=== PATIENT | male | born 1980 | race Caucasian/White ===

== ENCOUNTER 2018-07-12 15:45 | Emergency (ER) | payer SELFPAY ==
[2018-07-12] MEDS ORDERED: 50% Dextrose in Water 50 ML SDV ONE (15:48)
[2018-07-12] MEDS ORDERED: Dextrose 5%-0.9% NaCl 1,000 ML ONE (15:52)
--- NOTE | 2018-07-12 16:06 | EDM.PDOC ---
ED HPI GENERAL MEDICAL PROBLEM - General Chief Complaint: Diabetic Complaint Stated Complaint: WORK INJURY Time Seen by Provider: 07/12/18 15:47 - History of Present Illness INITIAL COMMENTS - FREE TEXT/NARRATIVE: 37-year-old male brought in by a coworker with decreased level of consciousness. Patient is a type I diabetic who became less responsive during the course of the last couple of hours. It is unclear if he ate lunch. Apparently he's been uses insulin as directed. Patient states he has plenty of insulin he cannot recall exactly what happens this information was found down after the patient's condition medically improved after getting glucose. The patient is a type I diabetic for most all his life. - Related Data Allergies Allergy/AdvReac Type Severity Reaction Status Date / Time No Known Allergies Allergy Verified 07/12/18 16:10 Home Meds: Home Meds Insulin Aspart [NovoLOG] 0 unit SQ WITHMEALSANDBED 07/12/18 [History] Insulin Glarg,Human.Rec.Analog [Lantus] 50 unit SQ BEDTIME 07/12/18 [History] Insulin Glarg,Human.Rec.Analog [Lantus] 80 unit SUBCUT DAILY 07/12/18 [History] ED ROS GENERAL - Review of Systems Review Of Systems: Unable To Obtain ED EXAM GENERAL NO PERIP PULSE - Physical Exam Exam: See Below Exam Limited By: Other (Patient is awake but will not answer questions initially Accu-Chek was done which reveals a result less than 30) Head: Atraumatic, Normocephalic Neck: Normal Inspection, Supple, Non-Tender. No: Lymphadenopathy (L), Lymphadenopathy (R) Respiratory/Chest: No Respiratory Distress, Lungs Clear, Normal Breath Sounds Cardiovascular: Regular Rate, Rhythm, No Edema, No Murmur GI/Abdominal: Normal Bowel Sounds, Soft, Non-Tender Course - Vital Signs Last Recorded V/S: Last Vital Signs Temp 37.2 C 07/12/18 16:07 Pulse 78 07/12/18 16:07 Resp 16 07/12/18 16:07 BP 160/99 H 07/12/18 16:07 Pulse Ox 99 07/12/18 16:07 - Orders/Labs/Meds Labs: Laboratory Tests 07/12/18 07/12/18 07/12/18 Range/Units 15:50 15:50 16:09 WBC 11.13 H (4.23-9.07) K/mm3 RBC 5.33 (4.63-6.08) M/mm3 Hgb 16.1 (13.7-17.5) gm/L Hct 46.6 (40.1-51.0) % MCV 87.4 (79.0-92.2) fl MCH 30.2 (25.7-32.2) pg MCHC 34.5 (32.2-35.5) g/dl RDW Std Deviation 42.3 (35.1-43.9) fL Plt Count 249 (163-337) K/mm3 MPV 9.9 (9.4-12.3) fl Neutrophils % (Manual) 73 H (40-60) % Band Neutrophils % 3 (0-10) % Lymphocytes % (Manual) 15 L (20-40) % Atypical Lymphs % 0 % Monocytes % (Manual) 8 (2-10) % Eosinophils % (Manual) 1 (0.8-7.0) % Basophils % (Manual) 0 L (0.2-1.2) Hypersegmented Neuts Few Toxic Granulation 1+ slight Platelet Estimate Adequate Plt Morphology Comment Normal RBC Morph Comment Normal Sodium 142 (136-145) mEq/L Potassium 3.8 (3.5-5.1) mEq/L Chloride 104 (98-107) mEq/L Carbon Dioxide 24 (21-32) mEq/L Anion Gap 17.8 H (5-15) BUN 16 (7-18) mg/dL Creatinine 1.0 (0.7-1.3) mg/dL Est Cr Clr Drug Dosing 113.17 mL/min Estimated GFR (MDRD) > 60 (>60) mL/min BUN/Creatinine Ratio 16.0 (14-18) Glucose 43 L (74-106) mg/dL POC Glucose 163 H (70-105) mg/dL Calcium 9.8 (8.5-10.1) mg/dL Total Bilirubin 0.4 (0.2-1.0) mg/dL AST 38 H (15-37) U/L ALT 64 H (16-63) U/L Alkaline Phosphatase 73 (46-116) U/L Total Protein 8.0 (6.4-8.2) g/dl Albumin 4.7 (3.4-5.0) g/dl Globulin 3.3 gm/dL Albumin/Globulin Ratio 1.4 (1-2) Meds: Medications Discontinued Medications Generic Name Dose Route Start Last Admin Trade Name Malia PRN Reason Stop Dose Admin Dextrose/Water 50 ml 07/12/18 16:22 07/12/18 15:51 Dextrose 50% In Water IVPUSH 07/12/18 16:23 50 ml STAT ONE Administration Dextrose/Sodium Chloride Confirm 07/12/18 15:52 07/12/18 16:11 Dextrose 5%-Normal Saline Administered 07/12/18 15:53 Not Given Dose 1,000 mls @ as directed .ROUTE .STK-MED ONE Dextrose/Sodium Chloride 1,000 mls @ 150 mls/hr 07/12/18 16:15 07/12/18 16:00 Dextrose 5%-Normal Saline IV 150 mls/hr ASDIRECTED VINCENZO Administration - Re-Assessments/Exams Free Text/Narrative Re-Assessment/Exam: 07/12/18 20:21 The patient dramatically improved and became normally conversive. Repeat bedside blood sugar was checked and found to be 163. After the patient improved he chose to leave the emergency room and signed out AMA. I discussed the risks of this with him and he still wanted to go Departure - Departure Time of Disposition: 16:10 Disposition: Against Medical Advice 07 Clinical Impression: Hypoglycemia - Discharge Information Referrals: PCP,None [Primary Care Provider] - Forms: ED Department Discharge
[2018-07-12] MEDS ORDERED: Dextrose 5%-0.9% NaCl 1,000 ML IV SCH (16:15)
[2018-07-12] MEDS ORDERED: 50% Dextrose in Water 50 ML Syringe IVPUSH ONE (16:22)
== END 2018-07-12 16:33 | disposition left against medical advice (07) ==
LOC: JD.ED 15:45
DX: E10.649 Type 1 diabetes mellitus with hypoglycemia without coma (principal)
CPT/HCPCS: 36415; 80053; 82962; 85007; 85027; 96374; 99284; J7042; J7060; 99283

== ENCOUNTER 2019-04-22 14:04 | Emergency (ER) | payer BC, OTHER ==
--- NOTE | 2019-04-22 14:47 | EDM.PDOC ---
ED HPI GENERAL MEDICAL PROBLEM - General Chief Complaint: Back Pain or Injury Stated Complaint: BACK INJURY/PAIN Time Seen by Provider: 04/22/19 14:28 Source of Information: Reports: Patient History Limitations: Reports: No Limitations - History of Present Illness INITIAL COMMENTS - FREE TEXT/NARRATIVE: Patient is a 38-year-old male who presents with complaints of upper back pain and slight numbness in his left arm for the last approximate 9 days. Patient states about 9 days ago he slipped on the ice causing his legs to come out from under him and he landed on his upper back. This pain is been present since that time. He cannot pinpoint when the numbness to his left arm began, however he thinks it is likely when he fell. He has had no tingling down the arm. He states it feels like when the arm falls asleep and starting to wake up. He does have "half sensation "in the arm. No previous injury to his spine. Pain has been tolerable. States that he has been taking ibuprofen which will improve the pain to a 3 out of 10. Without the ibuprofen he rates the pain a 5 out of 10. Upper Back Pain Score (Numeric/FACES): 8 - Related Data Allergies Allergy/AdvReac Type Severity Reaction Status Date / Time No Known Allergies Allergy Verified 04/22/19 14:14 Home Meds: Home Meds Insulin Aspart [NovoLOG] 0 unit SQ WITHMEALSANDBED 07/12/18 [History] Insulin Glarg,Human.Rec.Analog [Lantus] 80 unit SUBCUT DAILY 07/12/18 [History] Naproxen [Naprosyn] 500 mg PO Q12HR PRN #14 tab 04/22/19 [Rx] Orphenadrine [Norflex] 100 mg PO BID PRN #10 tab 04/22/19 [Rx] Rosuvastatin Calcium 40 mg PO DAILY 04/22/19 [History] Past Medical History Cardiovascular History: Reports: High Cholesterol Endocrine/Metabolic History: Reports: Diabetes, Type I Social & Family History - Tobacco Use Smoking Status *Q: Never Smoker - Recreational Drug Use Recreational Drug Use: No ED ROS GENERAL - Review of Systems Review Of Systems: Comprehensive ROS is negative, except as noted in HPI. ED EXAM, UPPER BACK/NECK PAIN - Physical Exam Exam: See Below Exam Limited By: No Limitations General Appearance: Alert, WD/WN, No Apparent Distress Head Exam: Atraumatic, Normocephalic Neck Exam: Non-Tender, Full Range of Motion, Normal Alignment, Normal Inspection Cardiovascular/Respiratory: Regular Rate, Rhythm, No M/R/G, Normal Peripheral Pulses, No JVD, Normal Breath Sounds, No Respiratory Distress Back Exam: Normal Inspection, Full Range of Motion. No: Muscle Spasm, Paraspinal Tenderness, Vertebral Tenderness Extremities: Normal Inspection, Normal Range of Motion, Non-Tender, No Pedal Edema, Normal Capillary Refill Neurologic: machine specialist II-XII nml As Tested, No Motor/Sensory Deficits, Alert, Normal Mood/Affect, Oriented x 3 Psychiatric: Normal Affect, Normal Mood Skin Exam: Normal Color, Warm/Dry Course - Vital Signs Last Recorded V/S: Last Vital Signs Temp 97.8 F 04/22/19 14:12 Pulse 84 04/22/19 14:12 Resp 16 04/22/19 14:12 BP 136/119 H 04/22/19 14:12 Pulse Ox 96 04/22/19 14:12 - Re-Assessments/Exams Free Text/Narrative Re-Assessment/Exam: 04/22/19 15:40 X-ray of the thoracic spine shows several mild anterior wedge deformities, however unable to differentiate between new and old. C-spine x-ray showed some minimal disc space narrowing at C5-C6. There was no evidence of any acute fractures on these x-rays. We will discharge the patient home with a prescription for Naprosyn and Norflex as needed. Recommend he follow-up with his primary care provider if symptoms do not improve to discuss the possibility of an MRI. Discharge instructions as documented. Departure - Departure Time of Disposition: 15:37 Disposition: Home, Self-Care 01 Condition: Fair Clinical Impression: Back pain Qualifiers: Back pain location: thoracic back pain Chronicity: acute Back pain laterality: bilateral Qualified Code(s): M54.6 - Pain in thoracic spine - Discharge Information *PRESCRIPTION DRUG MONITORING PROGRAM REVIEWED*: No *COPY OF PRESCRIPTION DRUG MONITORING REPORT IN PATIENT CORRY: No Prescriptions: Naproxen [Naprosyn] 500 mg PO Q12HR PRN #14 tab PRN Reason: Pain Orphenadrine [Norflex] 100 mg PO BID PRN #10 tab PRN Reason: Muscle Spasm Referrals: Kaleb Mathew MD [Primary Care Provider] - Forms: ED Department Discharge Additional Instructions: You were seen in the emergency department today for upper back pain and left arm numbness after falling 9 days ago. X-rays were completed of your spine and showed noes evidence of acute fracture. A prescription has been written for Naprosyn for pain and Norflex for muscle spasms. Recommend that you call to schedule follow-up appointment with your primary care provider to monitor your symptoms. If symptoms do not improve, as we discussed, you may need an MRI. If you experience any worsening symptoms, please do not hesitate to return to the emergency department. Sepsis Event Note - Evaluation Sepsis Screening Result: No Definite Risk - Focused Exam Vital Signs: Vital Signs Temp Pulse Resp BP Pulse Ox 04/22/19 14:12 97.8 F 84 16 136/119 H 96 Date Exam was Performed: 04/22/19 Time Exam was Performed: 15:41
--- NOTE | 2019-04-22 15:14 | CR ---
Cervical spine: AP, lateral and odontoid views of the cervical spine were obtained. Minimal disc space narrowing is noted at C5-6. Other disc spaces are maintained. Vertebral body heights maintained. Prevertebral soft tissues are normal. No discrete fracture or subluxation is seen. Impression: 1. Minimal disc space narrowing at C5-6. 2. No additional abnormality is appreciated on 3 view cervical spine exam. Diagnostic code #2 This report was dictated in MDT
--- NOTE | 2019-04-22 15:14 | CR ---
Thoracic spine: AP, lateral and swimmer's views of the thoracic spine were obtained. Comparison: No previous study. Several mild anterior wedge deformity are seen within the mid and upper thoracic spine. Age of these are indeterminate. Other vertebral body heights are maintained. Disc spaces are maintained. Pedicles are intact. No subluxation is seen. Impression: 1. Several mild anterior wedge deformities. Age of these are indeterminate. MRI would be needed to further age these findings if clinically indicated. 2. No abnormal subluxation or other abnormality is appreciated. Diagnostic code #3 This report was dictated in MDT
== END 2019-04-22 15:50 | disposition home or self-care (01) ==
LOC: JD.ED 14:04
DX: M54.6 Pain in thoracic spine (principal); E78.00 Pure hypercholesterolemia, unspecified; E10.9 Type 1 diabetes mellitus without complications; Z79.899 Other long term (current) drug therapy
CPT/HCPCS: 72040; 72040-26; 72072; 72072-26; 99283; 99284-25

== ENCOUNTER 2019-05-04 07:18 | Day surgery (SDC) | payer OTHER, BC ==
[2019-05-02 10:51] LABS: HEMOGLOBIN A1C 6.5 % (4.50-6.20)
[~2019-05-04 07:18] MED LIST: Lactated Ringers 1,000 ML IV SCH; Lidocaine 1%/Sod Bicarbonate in NS 8.4% 1 ML Syringe IDERM PRN; Sodium Chloride 0.9% 10 ML Syringe FLUSH PRN
[2019-05-04] MEDS ORDERED: EPINEPHrine 1 MG/ML SDV ONE (07:54)
[2019-05-04] MEDS ORDERED: Ropivacaine 0.5% 5 MG/ML 30 ML SDV ONE (07:55)
[2019-05-04] MEDS ORDERED: Bupivacaine 0.25% 10 ML SDV ONE (08:36)
--- NOTE | 2019-05-04 08:42 | PCM.PREANE ---
Preanesthetic Assessment - Procedure Proposed Procedure: Right trimalleolar fracture ORIF - Anesthesia/Transfusion/Family Hx Anesthesia History: Prior Anesthesia Without Reaction Family History of Anesthesia Reaction: No - Review of Systems General: No Symptoms Pulmonary: No Symptoms Cardiovascular: No Symptoms Gastrointestinal: No Symptoms Neurological: Numbness (Left hand post fall 2 weeks ago. ), Difficulty Walking ( Due to ankle fracture. ), Other (Fell on the ice two weeks ago back pain/ injury. Denies pain today. ) Other: Reports: Diabetes (Insulin dependent with sensor at 120 mg\dl. ) - Physical Assessment NPO Status Date: 05/03/19 NPO Status Time: 21:00 Vital Signs: Last Vital Signs Temp 36.6 C 05/04/19 07:42 Pulse 79 05/04/19 07:42 Resp 17 05/04/19 07:42 BP 140/89 05/04/19 07:42 Pulse Ox 95 05/04/19 07:42 Height: 1.84 m Weight: 111.13 kg ASA Class: 3 Mental Status: Alert & Oriented x3 Airway Class: Mallampati = 2 Dentition: Reports: Normal Dentition Thyro-Mental Finger Breadths: 3 Mouth Opening Finger Breadths: 3 ROM/Head Extension: Full Lungs: Clear to Auscultation, Normal Respiratory Effort Cardiovascular: Regular Rate, Regular Rhythm - Lab Values: Laboratory Last Values Sodium 141 mEq/L (136-145) 05/02/19 10:30 Potassium 4.4 mEq/L (3.5-5.1) 05/02/19 10:30 Chloride 105 mEq/L (98-107) 05/02/19 10:30 Carbon Dioxide 21 mEq/L (21-32) 05/02/19 10:30 Anion Gap 19.4 (5-15) H 05/02/19 10:30 BUN 17 mg/dL (7-18) 05/02/19 10:30 Creatinine 1.1 mg/dL (0.7-1.3) 05/02/19 10:30 Est Cr Clr Drug Dosing TNP 05/02/19 10:30 Estimated GFR (MDRD) > 60 mL/min (>60) 05/02/19 10:30 BUN/Creatinine Ratio 15.5 (14-18) 05/02/19 10:30 Glucose 152 mg/dL (74-106) H 05/02/19 10:30 Hemoglobin A1c 6.50 % (4.50-6.20) H 05/02/19 10:30 Calcium 9.6 mg/dL (8.5-10.1) 05/02/19 10:30 Total Bilirubin 0.5 mg/dL (0.2-1.0) 05/02/19 10:30 AST 20 U/L (15-37) 05/02/19 10:30 ALT 44 U/L (16-63) 05/02/19 10:30 Alkaline Phosphatase 107 U/L (46-116) 05/02/19 10:30 Total Protein 7.5 g/dl (6.4-8.2) 05/02/19 10:30 Albumin 4.3 g/dl (3.4-5.0) 05/02/19 10:30 Globulin 3.2 gm/dL 05/02/19 10:30 Albumin/Globulin Ratio 1.3 (1-2) 05/02/19 10:30 MRSA (PCR) Negative 05/02/19 09:50 - Allergies Allergies/Adverse Reactions: Allergies Allergy/AdvReac Type Severity Reaction Status Date / Time No Known Allergies Allergy Verified 05/03/19 10:54 - Anesthesia Plan Pre-Op Medication Ordered: Anxiolytic - Acknowledgements Anesthesia Type Planned: General Anesthesia, Regional Block, MAC Pt an Appropriate Candidate for the Planned Anesthesia: Yes Alternatives and Risks of Anesthesia Discussed w Pt/Guardian: Yes Pt/Guardian Understands and Agrees with Anesthesia Plan: Yes PreAnesthesia Questionnaire Cardiovascular History: Reports: High Cholesterol Musculoskeletal History: Reports: Back Pain, Chronic, Fracture Neurological History: Reports: Neuropathy, Peripheral Endocrine/Metabolic History: Reports: Diabetes, Type I - Past Surgical History GI Surgical History: Reports: Appendectomy - SUBSTANCE USE Smoking Status *Q: Never Smoker Days Per Week of Alcohol Use: 7 Number of Drinks Per Day: 1 Total Drinks Per Week: 7 Recreational Drug Use History: No - HOME MEDS Home Medications: Home Meds Insulin Aspart [NovoLOG] 0 unit SQ WITHMEALSANDBED 07/12/18 [History] Insulin Glarg,Human.Rec.Analog [Lantus] 80 unit SUBCUT ASDIRECTED 07/12/18 [ History] Rosuvastatin Calcium 40 mg PO DAILY 04/22/19 [History] Acetaminophen/HYDROcodone [[place] 325-5 MG] 1 - 2 tab PO Q6H PRN #30 tablet 05/03 [Rx] Aspirin 325 mg PO BID #84 tab 05/04/19 [Rx] - CURRENT (IN HOUSE) MEDS Current Meds: Current Medications Lactated Ringer's (Ringers, Lactated) 1,000 mls @ 125 mls/hr IV ASDIRECTED VINCENZO Stop: 05/04/19 23:00 Last Admin: 05/04/19 07:55 Dose: 125 mls/hr Lidocaine/Sodium Bicarbonate (Buffered Lidocaine 1% In Ns 8.4%) 0.25 ml IDERM ONETIME PRN PRN Reason: Prior to IV Start Stop: 05/04/19 18:00 Last Admin: 05/04/19 07:55 Dose: 0.25 ml Sodium Chloride (Saline Flush) 10 ml FLUSH ASDIRECTED PRN PRN Reason: Keep Vein Open Stop: 05/04/19 18:00 Discontinued Medications Bupivacaine HCl (Sensorcaine-Mpf 0.25%) Confirm Administered Dose 30 ml .ROUTE .STK-MED ONE Stop: 05/04/19 08:37 Epinephrine HCl (Adrenalin) Confirm Administered Dose 1 mg .ROUTE .STK-MED ONE Stop: 05/04/19 07:55 Ropivacaine (Naropin 0.5%) Confirm Administered Dose 30 ml .ROUTE .STK-MED ONE Stop: 05/04/19 07:56
[2019-05-04] MEDS ORDERED: Lactated Ringers 1,000 ML ONE (08:52)
[2019-05-04] MEDS ORDERED: Midazolam 1 MG/ML 2 ML SDV ONE (08:52)
[2019-05-04] MEDS ORDERED: Propofol 200 MG/20 ML SDV ONE ×2 (08:52→09:24)
[2019-05-04] MEDS ORDERED: ceFAZolin 1 GM Vial ONE (08:52)
[2019-05-04] MEDS ORDERED: fentaNYL 250 MCG/5 ML SDV ONE (08:52)
[2019-05-04] MEDS ORDERED: Ondansetron 4 MG/2 ML SDV ONE ×2 (08:52→08:53)
[2019-05-04] MEDS ORDERED: Dexamethasone 4 MG/ML SDV ONE (08:52)
[2019-05-04] MEDS ORDERED: Lidocaine 1% 4 ML ONE (08:52)
[2019-05-04] MEDS ORDERED: Lidocaine 1% 2 ML ONE (09:23)
[2019-05-04] MEDS ORDERED: Ketamine 500 mg/10 ML MDV ONE (09:27)
[2019-05-04] MEDS ORDERED: ePHEDrine Sulfate/0.9% NaCl/Pf 25 MG/5 ML SYRINGE IV ONE (10:19)
[2019-05-04] MEDS ORDERED: fentaNYL 100 MCG/2 ML SDV IVPUSH PRN (10:35)
[2019-05-04] MEDS ORDERED: Ondansetron 4 MG/2 ML SDV IVPUSH PRN (10:35)
[2019-05-04] MEDS ORDERED: HYDROmorphone 0.5 MG/0.5 ML Syringe IVPUSH PRN (10:35)
--- NOTE | 2019-05-04 11:37 | PCM.POSTAN ---
POST ANESTHESIA ASSESSMENT - MENTAL STATUS Mental Status: Somnolent - VITAL SIGNS Vital Signs: Last Vital Signs Temp 36.6 C 05/04/19 07:42 Pulse 70 05/04/19 09:11 Resp 14 05/04/19 09:11 BP 124/57 L 05/04/19 09:11 Pulse Ox 99 05/04/19 09:11 - RESPIRATORY Respiratory Status: Respiratory Rate WNL, Airway Patent, O2 Saturation Stable, Supplemental Oxygen - CARDIOVASCULAR CV Status: Pulse Rate WNL, Blood Pressure Stable - GASTROINTESTINAL GI Status: No Symptoms - PAIN Pain Score: 0 - POST OP HYDRATION Hydration Status: Adequate & Stable
--- NOTE | 2019-05-04 11:42 | PCM.PRNOTE ---
- Free Text/Narrative Note: Postoperative regional pain control requested by surgeon. Pre-op Dx: Right trimalleolar fracture Surgery : Right ankle ORIF Anesthesia Procedure: Right Popliteal sciatic block with U/S guidance Requesting physician: Dr. Phuc Carlson Risks and benefits discussed with the patient preoperatively including infection , bleeding, incomplete or failed block, possible nerve damage, local anesthetic toxicity. Chart reviewed, VS stable. Permit signed. Patient in PACU holding area, stable , alert and awake, positions himself prone with pillow support. Time out performed at 08:56. Oxygen 3L via NC. Right lateral thigh area above the knee was prepped with Chloraprep x 1 and allowed to dry. Midazolam 2 mg and Fentanyl 100 mcg IV given incrementally. Under aseptic technique, the right common peroneal and right tibial nerves were identified under ultrasound prior to needle insertion. Local infiltration with 1 % Lidocaine. 4" Stimuplex needle #22 G was inserted under US guidance. Neuromuscular response was elicited with noted foot twitch at 0.6 mA. Under direct visualization of needle tip the injection of 0.5% Ropivacaine with 1: 200k epinephrine, total of 30 mls in divided doses completely encircling the nerves, maintaining negative aspiration was completed without problems. No local anesthetic toxicity was noted. Patient is awake, stable and tolerated the procedure well. Please see attached ultrasound images Time: 08:56 - 09:06 Santiago Grullon CRNA
--- NOTE | 2019-05-04 12:06 | PCM48HPAN ---
Post Anesthesia Note - EVALUATION WITHIN 48HRS OF ANESTHETIC Vital Signs in Normal Range: Yes Patient Participated in Evaluation: Yes Respiratory Function Stable: Yes Airway Patent: Yes Cardiovascular Function Stable: Yes Hydration Status Stable: Yes Pain Control Satisfactory: Yes Nausea and Vomiting Control Satisfactory: Yes Mental Status Recovered: Yes Vital Signs: Last Vital Signs Temp 36.9 C 05/04/19 12:00 Pulse 82 05/04/19 12:00 Resp 13 05/04/19 12:00 BP 113/66 05/04/19 12:00 Pulse Ox 97 05/04/19 12:00 - COMMENTS/OBSERVATIONS Free Text/Narrative:: Able is doing well, the popliteal block is working well and he denies pain.
--- NOTE | 2019-05-04 13:09 | CR ---
Right ankle: 11 fluoroscopic spot views of the right ankle were obtained. Study obtained utilizing C-arm device. Comparison: Prior CT ankle study of 05/02/19. Findings: Plate and screws are noted within the fibula affixing previous fracture. Single screw crosses the fibula into the tibia. Ankle mortise is symmetric. Fluoroscopy time given as 25.5 seconds. Impression: 1. Procedural study as noted above. Diagnostic code #2 This report was dictated in MDT
--- NOTE | 2019-05-09 11:43 | PCM.OPNOTE ---
- General Post-Op/Procedure Note Date of Surgery/Procedure: 05/04/19 Operative Procedure(s): open reduction internal fixation of right lateral malleoulus and syndesmosis Pre Op Diagnosis: right trimalleolar equivalent ankle fracture Post-Op Diagnosis: Same Anesthesia Technique: General LMA, Local Primary Surgeon: Phuc Kwok Anesthesia Provider: Ursula [employer] Advisor: Charla Khan EBL in mLs: 5 Complications: None Condition: Good
--- NOTE | 2019-05-09 12:25 | OR ---
DATE OF OPERATION: 05/04/2019 SURGEON: Phuc Kwok MD OPERATION PERFORMED: Open reduction and internal fixation of right lateral malleolus and syndesmosis. PREOPERATIVE DIAGNOSIS: Right trimalleolar equivalent fracture. POSTOPERATIVE DIAGNOSIS: Right trimalleolar equivalent fracture. ANESTHESIA: General LMA with local. ANESTHESIA PROVIDER: Annie Moreno CRNA. SCOURING PADS SUPERVISOR: Charla Khan PA-C. ESTIMATED BLOOD LOSS: Less than 5 mL. COMPLICATIONS: None. CONDITION: Stable. DESCRIPTION OF PROCEDURE: The patient was identified in the preop holding area. Proper site was marked and identified by the surgeon. The patient was taken back to the operating theater where after anesthesia the patient had a nonsterile tourniquet applied to the right lower extremity. Right lower extremity was then sterilely prepped and draped in the usual sterile fashion. OR time-out was performed. Patient received 2 g of IV Ancef. Right lower extremity was exsanguinated. Tourniquet was insufflated to 250 mmHg. Standard lateral incision was made. This was taken down to the fracture site which was identified. It was curetted and rongeured of all fracture hematoma. A [id number] reduction clamp was then utilized to reduce the fracture site. At this time, it was decided we would do a lag screw, so a lag screw with 3.5 cortical screw was done, lag by intent. It was found to have adequate reduction on both AP, lateral, and mortise views of the mortise as well as the fracture site. An 8-hole [place] locking plate was then placed laterally under direct C-arm fluoroscopy which showed to be in the proper positioning. Next, a 3.5 cortical screw was placed both proximally and distally to the fracture site and then 2 locking screws were placed proximally and distally to the fracture site. At this time, patient was noted to have syndesmotic disruption. [id number] clamp was then used for reduction of the syndesmosis. The patient was noted to have a symmetrically reduced ankle mortise under C-arm fluoroscopy. Two 3.5 cortical screws were then placed through the plate and into the tibia and it had adequate fixation on stress view under C-arm fluoroscopy. The medial malleolus fracture was aligned as well as a posterior malleolus fracture and no need for further fixation. Adequate saline was irrigated through the wound. 2-0 Vicryl was used subcutaneously. Prineo and scott were used for the skin. The patient tolerated the procedure well, sent to PACU in stable condition. RIT /[id number]
== END 2019-05-04 14:26 | disposition home or self-care (01) ==
LOC: JD.SDS 07:18
PROVIDERS: ATTEND Orthopaedic Surgery
DX: S82.851A Displaced trimalleolar fracture of right lower leg, initial encounter for closed fracture (principal); E11.9 Type 2 diabetes mellitus without complications; I10 Essential (primary) hypertension; Z79.4 Long term (current) use of insulin; Z79.899 Other long term (current) drug therapy; W00.0XXA Fall on same level due to ice and snow, initial encounter; Y92.89 Other specified places as the place of occurrence of the external cause; Y99.0 Civilian activity done for income or pay
CPT/HCPCS: 27792; 36415; 76000; 80053; 83036; 87641; C1713; C1776; J0171; J0690; J1100; J2001; J2250; J2405; J2704; J2795; J3010; J3490; J7120; 01480; 64445